=== PATIENT | female | born 1995 | race Caucasian/White ===

== ENCOUNTER 2017-01-15 18:41 | Emergency (ER) | payer SELFPAY | END 2017-01-15 20:57 | disposition home or self-care (01) | LOC: D.ER 18:41 | DX: S99.911A Unspecified injury of right ankle, initial encounter (principal); X50.1XXA Overexertion from prolonged static or awkward postures, initial encounter; Y93.89 Activity, other specified; Y92.029 Unspecified place in mobile home as the place of occurrence of the external cause ==

== ENCOUNTER 2017-09-16 21:09 | Emergency (ER) | payer SELFPAY | END 2017-09-16 21:48 | disposition home or self-care (01) | LOC: D.ER 21:09 | DX: J03.90 Acute tonsillitis, unspecified (principal); J06.9 Acute upper respiratory infection, unspecified ==

== ENCOUNTER 2017-09-20 00:08 | Emergency (ER) | payer SELFPAY ==
[~2017-09-20] VITALS: Ht 160 cm; Wt 58.2 kg
[2017-09-20 00:20] VITALS: Ht 160 cm; Wt 58.2 kg
[2017-09-20] MEDS ORDERED: AMOXICILLIN500 M1 (00:23)
[2017-09-20 01:20] LABS: BASOPHILS 0.3 % (0-2); EOSINOPHILS 0.5 % (0-7); HEMATOCRIT 38.9 % (36.0-48.0); HEMOGLOBIN 13.1 g/dL (12-16); IMMATURE GRANULOCYTES 0.2 % (0-5); LYMPHOCYTES 11.1 % (15-50); MCH 29.7 pg (26.0-34.0); MCHC 33.7 g/dL (31.0-37.0); MCV 88.2 fL (80.0-100.0); MONOCYTES 9.7 % (2-11); NEUTROPHILS 78.2 % (40-80); PLATELET COUNT 198 10x3/uL (130-400); RBC 4.41 10x6/uL (4.00-5.40); RDW 13.4 % (11.5-14.5); WBC 10.5 10x3/uL (4.8-10.8)
[2017-09-20 01:35] LABS: MONO NEGATIVE (NEGATIVE)
[2017-09-20 01:39] LABS: ALBUMIN 3.4 g/dL (3.4-5.0); ALKALINE PHOSPHATASE 52 U/L (46-116); ALT (SGPT) 18 U/L (10-68); BILIRUBIN - TOTAL 0.37 mg/dL (0.2-1.3); CALC OSMOLALITY 276 mosm/kg (275-300); CALCIUM 8.3 mg/dL (8.5-10.1); CARBON DIOXIDE 27.1 mmol/L (21.0-32.0); CHLORIDE - SERUM 103 mmol/L (98-107); CREATININE - SERUM 0.7 mg/dL (0.6-1.3); GLUCOSE 114 mg/dL (74-106); POTASSIUM - SERUM 3.5 mmol/L (3.5-5.1); PROTEIN - SERUM 6.8 g/dL (6.4-8.2); SODIUM 139 mmol/L (136-145); UREA NITROGEN 6 mg/dL (7-18); eGFR NON AFRICAN AMERICAN > 90 mL/min (90-120)
[2017-09-20] MEDS ORDERED: BACTRIM DS TABL1 TAB PO (01:47)
[2017-09-20 01:52] VITALS: BP 111/67
[2017-09-21 16:15] LABS: EBV - EARLY ANTIGEN AB IGG <9.0 U/mL (0.0-8.9); EBV - NUCLEAR ANTIGEN AB IGG 41.7 U/mL (0.0-17.9); EBV VIRAL CAPSID AB IGG 57.2 U/mL (0.0-17.9); EBV VIRAL CAPSID AB IGM <36.0 U/mL (0.0-35.9)
== END 2017-09-20 01:54 | disposition home or self-care (01) ==
LOC: D.ER 00:08
PROVIDERS: Family Medicine
DX: J02.9 Acute pharyngitis, unspecified (principal); J01.90 Acute sinusitis, unspecified; M54.2 Cervicalgia; R50.9 Fever, unspecified; F17.200 Nicotine dependence, unspecified, uncomplicated

== ENCOUNTER 2018-02-20 16:56 | Emergency (ER) | payer SELFPAY ==
[~2018-02-20] VITALS: Ht 160 cm; Wt 54.5 kg
[~2018-02-20 16:56] MED LIST: AMOXICILLIN500 M1; BACTRIM DS TABL1 TAB PO
[2018-02-20 17:03] VITALS: Ht 160 cm; Wt 54.5 kg
[2018-02-20] MEDS ORDERED: VOLTAREN75 MG PO (18:22)
[2018-02-20 18:41] VITALS: BP 110/55
== END 2018-02-20 18:45 | disposition home or self-care (01) ==
LOC: D.ER 16:56
DX: S99.921A Unspecified injury of right foot, initial encounter (principal); W23.0XXA Caught, crushed, jammed, or pinched between moving objects, initial encounter; Y93.89 Activity, other specified; Y92.019 Unspecified place in single-family (private) house as the place of occurrence of the external cause; F17.200 Nicotine dependence, unspecified, uncomplicated

== ENCOUNTER 2018-11-21 18:44 | Emergency (ER) | payer SELFPAY ==
[~2018-11-21] VITALS: Ht 160 cm; Wt 59.1 kg
[~2018-11-21 18:44] MED LIST changes: +VOLTAREN75 MG PO
[2018-11-21 19:02] VITALS: BP 114/70; Ht 160 cm; Wt 59.1 kg
== END 2018-11-21 20:31 | disposition left against medical advice (07) ==
LOC: D.ER 18:44
DX: M79.673 Pain in unspecified foot (principal)

== ENCOUNTER 2019-01-30 19:52 | Emergency (ER) | payer SELFPAY ==
[~2019-01-30] VITALS: Ht 160 cm; Wt 53.8 kg
[2019-01-30 20:28] VITALS: BP 112/72; Ht 160 cm; Wt 53.8 kg
== END 2019-01-30 22:23 | disposition home or self-care (01) ==
LOC: D.ER 19:52
DX: R50.9 Fever, unspecified (principal)

== ENCOUNTER 2019-11-30 13:47 | Emergency (ER) | payer SELFPAY ==
[~2019-11-30] VITALS: Ht 160 cm; Wt 59.1 kg
[2019-11-30 13:58] VITALS: Ht 160 cm; Wt 59.1 kg
[2019-11-30] MEDS ORDERED: TRUVADA 200 MG1 EACH PO (14:46)
[2019-11-30] MEDS ORDERED: TIVICAY50 MG PO (14:47)
[2019-11-30 15:15] LABS: BASOPHILS 0.2 % (0-2); EOSINOPHILS 0.2 % (0-7); HEMATOCRIT 43.7 % (36.0-48.0); HEMOGLOBIN 14.4 g/dL (12-16); IMMATURE GRANULOCYTES 0.2 % (0-5); LYMPHOCYTES 12.7 % (15-50); MEAN PLATELET VOLUME 9.1 fL (7.4-10.4); MONOCYTES 4.9 % (2-11); NEUTROPHILS 81.8 % (40-80); RDW 13.4 % (11.5-14.5); WBC 12.3 10x3/uL (4.8-10.8)
[2019-11-30 15:17] LABS: PLATELET COUNT 297 10x3/uL (130-400)
[2019-11-30 15:28] LABS: CALC OSMOLALITY 273 mosm/kg (275-300); CARBON DIOXIDE 23.5 mmol/L (21.0-32.0); CHLORIDE - SERUM 103 mmol/L (98-107); CREATININE - SERUM 0.7 mg/dL (0.6-1.3); GLUCOSE 71 mg/dL (74-106); POTASSIUM - SERUM 3.8 mmol/L (3.5-5.1); SODIUM 138 mmol/L (136-145); UREA NITROGEN 13 mg/dL (7-18); eGFR NON AFRICAN AMERICAN > 90 mL/min (90-120)
[2019-11-30 15:34] LABS: ALBUMIN 4.5 g/dL (3.4-5.0); ALKALINE PHOSPHATASE 58 U/L (30-120); ALT (SGPT) 22 U/L (10-68); PROTEIN - SERUM 7.7 g/dL (6.4-8.2)
[2019-11-30 16:53] LABS: BILIRUBIN NEGATIVE (NEGATIVE); GLUCOSE NEGATIVE (NEGATIVE); KETONE MODERATE mg/dL (NEGATIVE); NITRITE NEGATIVE (NEGATIVE); UROBILINOGEN NORMAL (NORMAL)
[2019-11-30 16:56] LABS: RED CELLS - URINE 0-5 /hpf (0-5); WHITE CELLS - URINE 0-5 /hpf (NEGATIVE)
[2019-11-30 16:57] LABS: BACTERIA FEW /hpf (NEGATIVE)
[2019-11-30 16:58] LABS: UDS - AMPHET NEGATIVE QUAL (NEGATIVE); UDS - BARB NEGATIVE QUAL (NEGATIVE); UDS - BENZO NEGATIVE QUAL (NEGATIVE); UDS - COCAINE NEGATIVE QUAL (NEGATIVE); UDS - OPIATE NEGATIVE QUAL (NEGATIVE); UDS - PCP NEGATIVE QUAL (NEGATIVE); UDS - THC POSITIVE QUAL (NEGATIVE)
[2019-11-30 17:17] VITALS: BP 101/75
== END 2019-11-30 17:17 | disposition home or self-care (01) ==
LOC: D.ER 13:47
PROVIDERS: Family Medicine
DX: T76.21XA Adult sexual abuse, suspected, initial encounter (principal); F17.210 Nicotine dependence, cigarettes, uncomplicated; M54.5 Low back pain